=== PATIENT | female | born 1985 ===

== ENCOUNTER → 2018-04-12 13:05 | Outpatient (REF) | payer MEDICAID, SELFPAY ==
--- NOTE | 2018-04-12 12:30 | PAPFT_PTH ---
PATIENT: Lynnette Tobar LOC: [facility] U#:[id number] AGE/SX: 40/F ROOM: RE04/12/[address]: Noemi Robles : 1985 BED: DIS: SPEC #: [id number] RECD: 04/13/18 12:51 STATUS: ALEIDA NOBLE #: [id number] RUBI: 04/12/18 12:[address]: Noemi Robles DEPT: [facility] Cytology RECD BY: dAdie Moore Tissues: 1 - CX/ENDOCX FOR PAP SMEARS Procedures: PAP THIN PREP/[facility] Screening Comments: [id number] (CHLAMYDIA GC) (UNSATISFACTORY FOR EVALUATION)
[2018-04-14 14:29] LABS: Chlamydia Result Negative; GC Result Negative; Specimen Description SEE COMMENTS
== END ==
LOC: NCHCN 13:05
PROVIDERS: PCP Family Medicine; Visit Provider Family Medicine
DX: Z11.3 Encounter for screening for infections with a predominantly sexual mode of transmission (principal); Z12.4 Encounter for screening for malignant neoplasm of cervix; Z11.51 Encounter for screening for human papillomavirus (HPV); Z00.00 Encounter for general adult medical examination without abnormal findings
CPT/HCPCS: 87491; 87591; 88142; 87624

== ENCOUNTER 2018-08-02 13:33 | Outpatient (REF) | payer MEDICAID, SELFPAY ==
--- NOTE | 2018-08-02 11:30 | PAPFT_PTH ---
PATIENT: Lynnette Tobar LOC: [facility] U#:[id number] AGE/SX: 33/F ROOM: RE08/02/[address]: Noemi Robles : 1985 BED: DIS: 08/02/2018 SPEC #: [id number] RECD: 08/02/18 16:51 STATUS: ALEIDA RERajesh #: [id number] RUBI: 08/02/18 11:[address]: Noemi Robles DEPT: [facility] Cytology RECD BY: Addie Moore Tissues: 1 - CX/ENDOCX FOR PAP SMEARS Procedures: PAP THIN PREP/[facility] Screening HPV DNA PROBE Comments: [id number]
== END 2018-08-02 13:53 ==
LOC: NCHCN 13:33
PROVIDERS: PCP Family Medicine; Visit Provider Family Medicine
DX: Z12.4 Encounter for screening for malignant neoplasm of cervix (principal); Z11.51 Encounter for screening for human papillomavirus (HPV); Z00.00 Encounter for general adult medical examination without abnormal findings
CPT/HCPCS: 88142; 87624

== ENCOUNTER 2020-06-11 13:57 | Outpatient (CLI) | payer MEDICAID, SELFPAY ==
--- NOTE | 2020-06-11 13:30 | DI.RAD_ITS ---
EXAM: XR KNEE LT 3V AP,LAT,SONIA CLINICAL HISTORY: left knee pain. TECHNIQUE: 2D digital imaging was performed. COMPARISON: No exams were available for comparison FINDINGS: BONES: No acute fracture is present. No bony destructive lesion is seen. JOINTS: There is minimal medial femoral tibial joint space narrowing and minimal periarticular spurri ng.. No joint effusion is seen. SOFT TISSUE: Normal. IMPRESSION: Minimal degenerative changes. DATA REPOSITORY: RADIATION DOSE DELIVERED:
== END 2020-06-11 14:17 ==
PROVIDERS: PCP Family Medicine; Referring Provider Family Medicine; Visit Provider Student in an Organized Health Care Education/Training Program
DX: M17.12 Unilateral primary osteoarthritis, left knee (principal)
CPT/HCPCS: 73562

== ENCOUNTER 2024-08-17 15:16 | Outpatient (REF) | payer OTHER, SELFPAY ==
--- NOTE | 2024-08-17 13:30 | PAPFT_PTH ---
PATIENT: Lynnette Tobar LOC: [facility]#:[id number] AGE/SX: 39/F ROOM: RE08/17/[address]: Noemi Robles : 1985 BED: DIS: 08/17/2024 SPEC #: [id number] RECD: 08/17/24 17:31 STATUS: ALEIDA RERajesh #: [id number] URBI: 08/17/24 13:[address]: Noemi Robles DEPT: [facility] Cytology RECD BY: Addie Moore Tissues: 1 - CX/ENDOCX FOR PAP SMEARS Procedures: PAP THIN PREP/[facility] Screening HPV DNA PROBE Comments: [id number] (HPV 16 & 18/45)
== END 2024-08-17 15:17 | disposition home or self-care (01) ==
LOC: NCHCN 15:16
PROVIDERS: PCP Family Medicine; Visit Provider Family Medicine
DX: Z11.51 Encounter for screening for human papillomavirus (HPV) (principal); Z01.419 Encounter for gynecological examination (general) (routine) without abnormal findings
CPT/HCPCS: 88142; 87624

== ENCOUNTER 2025-08-07 15:22 | Outpatient (REF) | payer SELFPAY ==
[2025-08-07 18:28] LABS: Cholesterol 164 mg/dL (<200); HDL Cholesterol 65 mg/dL (>40)
[2025-08-07 22:57] LABS: Hepatitis C Ab w Rflx HCV PCR Negative (Negative)
[2025-08-07 22:59] LABS: HIV-1/2 Ag & Ab Screen Negative (Negative)
== END 2025-08-07 15:23 | disposition home or self-care (01) ==
LOC: NCHCN 15:22
PROVIDERS: PCP Family Medicine; Visit Provider Family Medicine
DX: Z13.220 Encounter for screening for lipoid disorders (principal); Z11.4 Encounter for screening for human immunodeficiency virus [HIV]; Z11.59 Encounter for screening for other viral diseases
CPT/HCPCS: 80061; 86803; 87389